=== PATIENT | male | born 1965 | race Caucasian/White ===

== ENCOUNTER 2017-09-21 08:00 | Outpatient (RCR) | payer MEDICAID, SELFPAY | END 2017-09-21 09:52 | disposition home or self-care (01) | LOC: OT 08:00 | PROVIDERS: Visit Provider Psychiatry & Neurology Neurology | DX: G81.10 Spastic hemiplegia affecting unspecified side (principal); I69.359 Hemiplegia and hemiparesis following cerebral infarction affecting unspecified side | CPT/HCPCS: 97110; 97163; 97165 ==

== ENCOUNTER 2017-12-15 08:00 | Outpatient (RCR) | payer MEDICAID, SELFPAY | END 2017-12-15 14:04 | disposition home or self-care (01) | LOC: PT 08:00 | PROVIDERS: Referring Provider Psychiatry & Neurology Neurology; Visit Provider Psychiatry & Neurology Neurology | DX: G81.10 Spastic hemiplegia affecting unspecified side (principal); I69.359 Hemiplegia and hemiparesis following cerebral infarction affecting unspecified side | CPT/HCPCS: 97010; 97014; 97110; 97112; 97116; 97164; G0283 ==

== ENCOUNTER 2019-01-11 17:00 | Outpatient (RCR) | payer MEDICAID, SELFPAY | END 2019-01-11 18:00 | disposition home or self-care (01) | LOC: PT.CARL 17:00 | PROVIDERS: Visit Provider Nurse Practitioner Family | DX: R26.9 Unspecified abnormalities of gait and mobility (principal); I69.30 Unspecified sequelae of cerebral infarction | CPT/HCPCS: 97110; 97112; 97116; 97163 ==

== ENCOUNTER → 2021-09-19 09:45 | Outpatient (CLI) | payer MEDICARE, MEDICAID, SELFPAY ==
--- NOTE | 2021-09-19 09:50 | XR_ITS ---
FINAL REPORT CLINICAL HISTORY: RT ANKLE INJURY, RT LATERAL ANKLE PAIN FINDINGS: RIGHT ANKLE Three views demonstrate no acute fracture or dislocation. The joint spaces appear normal. No acute soft tissue abnormality is seen. IMPRESSION: No acute process. Reviewed, Interpreted and Dictated by Jackson Kumar III, MD Transcribed by Sherry Felix Authenticated by Jackson Kumar III, MD on 09/19/2021 10:54:43 AM [facility]
== END ==
PROVIDERS: PCP Nurse Practitioner Family; Visit Provider Nurse Practitioner Family
DX: S99.911A Unspecified injury of right ankle, initial encounter (principal)
CPT/HCPCS: 73610

== ENCOUNTER 2021-12-10 15:00 | Outpatient (RCR) | payer MEDICARE, MEDICAID, SELFPAY | END 2021-12-23 16:35 | disposition home or self-care (01) | LOC: PT.CARL 15:00 | PROVIDERS: PCP Nurse Practitioner Family; Visit Provider Psychiatry & Neurology Neurology | DX: R26.9 Unspecified abnormalities of gait and mobility (principal); I69.351 Hemiplegia and hemiparesis following cerebral infarction affecting right dominant side | CPT/HCPCS: 97110; 97116; 97163; 97164; 97530 ==